=== PATIENT | female | born 1985 | race Caucasian/White ===

== ENCOUNTER 2018-02-14 19:50 | Emergency (ER) | payer OTHER, MEDICAID ==
[2018-02-14] MEDS: NORCO 5/325MG TABLET (BULK FOR ED) PO (22:59)
== END 2018-02-14 23:04 | disposition home or self-care (01) ==
LOC: M ED 19:50
DX: S40.012A Contusion of left shoulder, initial encounter (principal); W19.XXXA Unspecified fall, initial encounter; Y92.098 Other place in other non-institutional residence as the place of occurrence of the external cause; J45.909 Unspecified asthma, uncomplicated; Z88.5 Allergy status to narcotic agent
CPT/HCPCS: 73030

== ENCOUNTER 2018-03-21 20:03 | Emergency (ER) | payer OTHER ==
[2018-03-21] MEDS: methylPREDNISolone INJ 125 MG/2 ML VIAL (J2930) IM (21:25)
[2018-03-21] MEDS: diazePAM 10 MG TAB PO (21:25)
[2018-03-21] MEDS: KETOROLAC 60 MG/2 ML VIAL (J1885) IM (21:26)
== END 2018-03-21 22:18 | disposition home or self-care (01) ==
LOC: M ED 20:03
DX: M51.27 Other intervertebral disc displacement, lumbosacral region (principal); M54.17 Radiculopathy, lumbosacral region; M54.9 Dorsalgia, unspecified; J45.909 Unspecified asthma, uncomplicated; Z72.0 Tobacco use; Z79.899 Other long term (current) drug therapy; Z88.6 Allergy status to analgesic agent; Z88.5 Allergy status to narcotic agent; Z88.0 Allergy status to penicillin
CPT/HCPCS: J1885

== ENCOUNTER → 2018-07-05 | Outpatient (REF) | payer OTHER ==
[~2018-07-05] MED LIST: ASPI81TA3 OR; BACL10TA2; DARV100T; DOXE10CA; DULO1CAP2; FERR325T; FEXO180T58; GABA-845; MAGN500T2; NORCOTAB PO; ORTHOTRICY PO; PRENATAL VITAMIN; SLOW FE; SYMB16INH; ULTRTA OR; VALI10TA PO; [UNRECOGNIZED DRUG - CODE] PO
== END ==
LOC: M LAB REF 17:09
PROVIDERS: ATTEND Obstetrics & Gynecology
DX: Z32.02 Encounter for pregnancy test, result negative (principal); Z3A.00 Weeks of gestation of pregnancy not specified

== ENCOUNTER 2019-12-30 01:03 | Emergency (ER) | payer MEDICAID, OTHER ==
[~2019-12-30] VITALS: Ht 160 cm; Wt 70.5 kg
[~2019-12-30 01:03] MED LIST changes: -DULO1CAP2; +DULO1CAP5; +HYDR-3715 PO; -NORCOTAB PO
[2019-12-30 01:23] VITALS: BP 141/86
[2020-03-05] MEDS ORDERED: WELL200T PO (13:22)
[2020-03-05] MEDS ORDERED: GABA800T4 PO (13:22)
[2020-03-05] MEDS ORDERED: TRAM50TA2 PO (13:23)
== END 2019-12-30 02:31 | disposition home or self-care (01) ==
LOC: M ED 01:03
DX: Z60.9 Problem related to social environment, unspecified (principal); G89.29 Other chronic pain; Z79.899 Other long term (current) drug therapy; Z88.0 Allergy status to penicillin; Z88.5 Allergy status to narcotic agent; Z88.8 Allergy status to other drugs, medicaments and biological substances; F17.210 Nicotine dependence, cigarettes, uncomplicated

== ENCOUNTER → 2020-03-06 | Outpatient (CLI) | payer OTHER ==
[~2020-03-06] MED LIST changes: +GABA800T4 PO; +TRAM50TA2 PO; +WELL200T PO
== END ==
LOC: M LABSMTC 10:51
PROVIDERS: ATTEND Anesthesiology
DX: Z01.818 Encounter for other preprocedural examination (principal)
CPT/HCPCS: C9803; U0003

== ENCOUNTER 2020-03-11 14:31 | Day surgery (SDC) | payer OTHER ==
[~2020-03-11] VITALS: Ht 160 cm; Wt 67.1 kg
[2020-03-11] MEDS ORDERED: NS 1,000 ML IV ONE (15:00)
[2020-03-11] MEDS ORDERED: LIDOCAINE 2% 100MG/5ML SDV (FOR ANES.) As Ordered ONE (16:08)
[2020-03-11] MEDS ORDERED: propofoL 200 MG/20 ML VIAL As Ordered ONE (16:08)
[2020-03-11] MEDS ORDERED: fentaNYL 100 MCG/2 ML INJECTION (J3010) As Ordered ONE (16:08)
--- NOTE | 2020-03-11 16:24 | ROOR ---
Patient Name: Etta Castano Procedure Date: 03/11/2020 4:08 PM Date of : 1985 Age: 34 Room: [facility] Gender: Female Note Status: Finalized Procedure: Upper GI endoscopy Indications: Epigastric abdominal pain, Functional Dyspepsia Providers: Franklin SANTOS MD Referring MD: Edith SINHA MD Requesting Provider: Medicines: Monitored Anesthesia Care Complications: No immediate complications. Procedure: Pre-Anesthesia Assessment: - The heart rate, respiratory rate, oxygen saturations, blood pressure, adequacy of pulmonary ventilation, and response to care were monitored throughout the procedure. The Endoscope was introduced through the mouth, and advanced to the second part of duodenum. The upper GI endoscopy was accomplished without difficulty. The patient tolerated the procedure well. Findings: Non-severe esophagitis was found at the gastroesophageal junction. Biopsies were taken with a cold forceps for histology. The exam of the esophagus was otherwise normal. The entire examined stomach was normal. Biopsies were taken with a cold forceps for Helicobacter pylori testing. The examined duodenum was normal. Impression: - Non-severe reflux esophagitis. Biopsied. - Normal stomach. Biopsied. - Normal examined duodenum. - (Suspect non ulcer dyspepsia) Recommendation: - Use Prilosec (omeprazole) 40 mg PO daily. - Use Levsin, NuLev (hyoscyamine) 0.125 mg 1-2 tabs PO q 6-8 hours PRN - (the script was sent to your pharmacy on file) Franklin Santos MD Franklin SANTOS MD 03/11/2020 4:23:37 PM Electronically signed by Franklin SANTOS MD Number of Addenda: 0 Note Initiated On: 03/11/2020 4:08 PM Estimated Blood Loss: Estimated blood loss: none.
[2020-03-11 16:54] VITALS: BP 125/74
== END 2020-03-11 16:59 | disposition home or self-care (01) ==
LOC: M OPP 14:31
PROVIDERS: ATTEND Internal Medicine Gastroenterology
DX: K21.00 Gastro-esophageal reflux disease with esophagitis, without bleeding (principal); K30 Functional dyspepsia; F17.210 Nicotine dependence, cigarettes, uncomplicated; Z79.891 Long term (current) use of opiate analgesic; Z79.899 Other long term (current) drug therapy; Z88.5 Allergy status to narcotic agent; Z88.8 Allergy status to other drugs, medicaments and biological substances
CPT/HCPCS: 43239; 88305; J3010

== ENCOUNTER → 2020-03-19 | Outpatient (CLI) | payer OTHER, MEDICAID ==
--- NOTE | 2020-03-20 23:46 | ECWPNPC ---
PATIENT NAME: DARIUS KRUEGER : 1985 GENDER: FEMALE VISIT DATE: 03/19/2020 DISCHARGE DATE: 03/19/20923 VISIT LOCKED DATE TIME: PHYSICIAN: AIME KEENE RESOURCE: AIME KEENE REASON FOR APPOINTMENT 1. LEFT ELBOW AND FOREARM PAIN HISTORY OF PRESENT ILLNESS DEPRESSION SCREENING: PHQ-2 (2015 EDITION) LITTLE INTEREST OR PLEASURE IN DOING THINGS?NOT AT ALL FEELING DOWN, DEPRESSED, OR HOPELESS?NOT AT ALL TOTAL SCORE0 GENERAL: 34-YEAR-OLD FEMALE REFERRED BY DR. NATH, [facility], [facility] FOR LEFT ELBOW AND FOREARM PAIN. SHE IS STATUS POST LEFT ULNAR NERVE SURGERY WITH COMPLICATIONS OF INFECTION WITH LAST INTERVENTION SURGICALLY APPROXIMATELY 4 WEEKS AGO. DESCRIBES CONTINUOUS LEFT FOREARM AND HAND BURNING PAIN. REPORTING WEAKNESS IN LEFT ARM. 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 THIS HAS ALL BEEN SINCE THE LAST SURGERY 4 WEEKS AGO. FOLLOWS WITH [facility] IN [place], DR. MORALES FOR MEDICATION MANAGEMENT AND TREATMENT OF CHRONIC LOW BACK PAIN. SHE IS CONSIDERED POST OPERATIVE PAIN MANAGEMENT AT THIS POINT IN TIME AND WOULD RECOMMEND THAT IF THIS TURNS INTO A CHRONIC PAIN ISSUE SHE BE EVALUATED BY DR. MORALES'S PRACTICE WHERE SHE CURRENTLY FOLLOWS FOR LOW BACK PAIN. PATIENT WOULD PREFER TO GO TO [facility] SHE GOES THERE FOR HER CHRONIC LOW BACK PAIN. FALL RISK SCREENING: SCREENING :NO FALLS REPORTED IN THE LAST YEAR PAIN SCREENING: PATIENT HAS A COMPLAINT OF ACUTE OR CHRONIC PAIN :YES LOCATION OF PAIN: LEFT ELBOW/FOREARM INTENSITY OF PAIN (SCALE OF 1 TO 10):7 WHAT DOES YOUR PAIN FEEL LIKE:SORE, CONTINOUS DURATION:AWAKENS FROM SLEEP, CONSTANT PAIN IS INCREASED BY:ACTIVITIES PAIN IS DECREASED BY:USE OF PAIN MEDICATIONS PLAN/GOALS/TREATMENT/INTERVENTION/FOLLOW UP:SEE PLAN NURSING NOTE: -. PAIN CENTER INTAKE QUESTIONS: DO YOU HAVE A HISTORY OF MRSA? :NO DO YOU TAKE A BLOOD THINNERS? :NO DO YOU HAVE ANY BLEEDING DISORDERS? :NO ANY NEW NUMBNESS OR WEAKNESS IN YOUR LEGS OR ARMS? :YES LEFT ARM NUMBNESS AND WEAKNESS S/P SURGERY IN BILATERAL ARMS, COMPLICATIONS WITH SURGERY RESULTING IN CHRONIC PAIN IN LEFT ELBOW. ANY PACEMAKER,DEFIBRILLATOR, OR DORSAL COLUMN STIMULATOR? :NO DO YOU HAVE ANY RASHES OR OPEN SORES? :NO ARE YOU ALLERGIC TO IV DYE? :NO ARE YOU DIABETIC? :NO ANY NEW PROBLEMS WITH YOUR MEDICATIONS? :NO HAVE YOU RECEIVED A VACCINE IN THE PAST 30 DAYS? :NO DO YOU PLAN TO RECEIVE A VACCINE IN THE NEXT 21 DAYS? :NO DO YOU NEED ANY PRESCRIPTION? :NO DO YOU TAKE ANY IMMUNOSUPPRESSIVE MEDICATIONS? :NO IS THERE A CHANCE YOU COULD BE ? :NO ARE YOU BREAST FEEDING? 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 SOCIAL HISTORY GENERAL: TOBACCO USE ARE YOU A:CURRENT SMOKER VAPORNO E-CIGARETTENO LATEX QUESTIONNAIRE LATEX ALLERGY : HAVE YOU EVER DEVELOPED ANY TYPE OF REACTION AFTER HANDLING LATEX PRODUCTS SUCH RUBBER GLOVES, CONDOMS, DIAPHRAGMS, BALLOONS, SOCKS, OR UNDERWEAR?NO LATEX ALLERGY : HAVE YOU EVER DEVELOPED ANY TYPE OF REACTION DURING OR AFTER DENTAL APPOINTMENT, VAGINAL/RECTAL EXAMINATION, SURGICAL PROCEDURE, OR ANY OTHER EXPOSURE?NO LATEX RISK : HAVE YOU EVER HAD ANY DIFFICULTY BREATHING OR HIVES AFTER EATING OR HANDLING ANY FRUITS, OR VEGETABLES; SUCH KIWI, BANANAS, STONE FRUITS, OR CHESTNUTSNO LATEX RISK : DO YOU HAVE A PREVIOUS PERSONAL HISTORY OF MORE THAN NINE SURGERIES, SPINA BIFIDA, OR REPEATED CATHERIZATIONS? NO LATEX RISK : ARE YOU FREQUENTLY EXPOSED TO LATEX PRODUCTS IN YOUR OCCUPATION?NO DATE ASKED : 03/19/2020 ALCOHOL SCREENING DID YOU HAVE A DRINK CONTAINING ALCOHOL IN THE PAST YEAR?YES HOW OFTEN DID YOU HAVE A DRINK CONTAINING ALCOHOL IN THE PAST YEAR?MONTHLY OR LESS (1 POINT) HOW MANY DRINKS DID YOU HAVE ON A TYPICAL DAY WHEN YOU WERE DRINKING IN THE PAST YEAR?1 OR 2 (0 POINTS) HOW OFTEN DID YOU HAVE SIX OR MORE DRINKS ON ONE OCCASION IN THE PAST YEAR?LESS THAN MONTHLY (1 POINT) POINTS2 INTERPRETATIONNEGATIVE RECREATIONAL DRUG USE DRUG USE?NO LEARNING BARRIERS / SPECIAL NEEDS BARRIERS TO LEARNING?NO HEARING IMPAIRED?NO VISION IMPAIRED?NO COGNITIVELY IMPAIRED?NO READINESS TO LEARN?YES LEARNING PREFERENCES?YES :CLASSES, DEMONSTRATION/VERBAL INSTRUCTION LEARNING CAPABILITIES PRESENT?YES EMOTIONAL BARRIERS?YES COMMENTSDOCUMENTED IN NOTES SECTION> ANXIETY SPECIAL DEVICES?NO ASSISTANT PROFESSOR NEEDED?NO DOMESTIC VIOLENCE DO YOU FEEL SAFE IN YOUR ENVIRONMENT?YES MARITAL STATUS: SINGLE. ADVANCE DIRECTIVE ADVANCE DIRECTIVE DISCUSSED WITH PATIENT:YES PATIENT DENIES ANY ADVANCED DIRECTIVES, DENIES ASSISTANCE AT THIS TIME. HOSPITALIZATION/MAJOR DIAGNOSTIC PROCEDURE CHILD REVIEW OF SYSTEMS CONSTITUTIONAL: ANY RECENT FEVER NO . CHILLS NO . WEIGHT CHANGE OF UNKNOWN REASONS NO . GASTROENTEROLOGY: NEW UNEXPLAINABLE CHANGES IN BOWEL CONTROL NO . CONSTIPATION NO . GENITOURINARY: ANY NEW CHANGE IN BLADDER CONTROL? NO . NEUROLOGY: NEW ONSET DIZZINESS OR NEUROLOGICAL CHANGES NOT MENTIONED NO . NEW NUMBNESS OR PAIN PATTERNS NOT MENTIONED AND PERTINENT TO TODAY'S VISIT NO . CARDIOLOGY: NEW CHEST PRESSURE NO . NEW CHEST PAIN NO . RESPIRATORY: UNEXPLAINABLE COUGH NO . NEW SHORTNESS OF BREATH NO . VITAL SIGNS WT 153.0 LBS, HT 62.75 IN, BMI 27.32 INDEX, BP 149/75 MM HG, HR 108 /MIN, RR 18 /MIN, TEMP 98.2 F, OXYGEN SAT % 100%, NA INITIALS AW 0847, REVIEWED BY: MTM. LOLA RN BSN. EXAMINATION GENERAL EXAMINATION: GENERALNO ACUTE DISTRESS, WELL NOURISHED AND HYDRATED. PSYCHAPPROPRIATE MOOD AND AFFECT . FACE:UNREMARKABLE. NECK:NO LYMPHADENOPATHY, . LUNGS:CLEAR TO AUSCULTATION BILATERALLY, NO WHEEZES, RHONCHI, RALES. HEART:NO MURMURS, REGULAR RATE AND RHYTHM. MUSCULOSKELETAL:EQUAL STRONG INSTALLMENT LOAN COLLECTOR STRENGTH BILATERAL HANDS. . NEUROLOGIC EXAM:REPORTING NORMAL SENSATION TO LIGHT TOUCH BILATERAL UPPER EXTREMITIES AND HANDS. . 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 GARRETT IF LEFT ARM BECOMES A CHRONIC PAIN ISSUE. PROCEDURE CODES FA211 ESTABILISHED PATIENT [facility] CHARGE DISPOSITION & COMMUNICATION FOLLOW UP PATIENT REQUESTING [facility] REFERRAL/NO FOLLOW-UP NECESSARY (REASON: LEFT ULNAR NEURITIS/POSTOPERATIVE PAIN) ELECTRONICALLY SIGNED BY KRYSTYNA SONG ON 03/20/2020 AT 10:26 AM EST DISCLAIMER : THIS IS A VISIT SUMMARY EXTRACTED FROM THE [employer] CHART. IT IS NOT A COPY OF THE [employer] PROGRESS NOTE. LYNDA
== END ==
LOC: M PAIN 08:30
PROVIDERS: ATTEND Nurse Practitioner Family
DX: G89.18 Other acute postprocedural pain (principal); G56.22 Lesion of ulnar nerve, left upper limb; Z79.891 Long term (current) use of opiate analgesic; Z79.899 Other long term (current) drug therapy; F17.210 Nicotine dependence, cigarettes, uncomplicated; Z88.0 Allergy status to penicillin; Z88.6 Allergy status to analgesic agent

== ENCOUNTER → 2020-09-07 | Outpatient (CLI) | payer OTHER ==
--- NOTE | 2020-09-08 16:20 | REPVR ---
PROCEDURE INFORMATION: Exam: MR Lumbar Spine Without Contrast Exam date and time: 09/07/2020 3:36 PM Age: 35 years old Clinical indication: Low back pain; Patient HX: Lbp; Additional info: Dd lumbar region TECHNIQUE: Imaging protocol: Multiplanar magnetic resonance images of the lumbar spine without intravenous contrast. COMPARISON: No relevant prior studies available. FINDINGS: Vertebral body heights are maintained. No abnormal marrow signal. No cord compression. No abnormal cord signal. Conus medullaris terminates at the L1 level. Mild degenerative disc height loss at L4-L5. Multilevel Schmorl's node phenomena. Paravertebral soft tissues are unremarkable. L1-L2: No significant canal or foraminal narrowing. L2-L3: No significant canal or foraminal narrowing. L3-L4: No significant canal or foraminal narrowing. L4-L5: Broad-based disc bulge causes mild canal narrowing and mild bilateral foraminal narrowing. L5-S1: No significant canal or foraminal narrowing. IMPRESSION: 1. No acute findings in the lumbar spine. 2. Mild spondylotic changes of the lower lumbar spine without evidence of nerve root compression. Electronically signed by: Tommy Cardoza On 09/08/2020 16:20:09 PM
== END ==
LOC: M RAD 14:46
PROVIDERS: ATTEND Physician Assistant
DX: M51.36 Other intervertebral disc degeneration, lumbar region (principal)

== ENCOUNTER → 2020-11-24 | Outpatient (CLI) | payer OTHER ==
[~2020-11-24] MED LIST changes: +GABA-283; -GABA-845
--- NOTE | 2020-11-24 18:31 | REP ---
INDICATION: RT HIP PAIN. COMPARISON: None. TECHNIQUE: Whole pelvic coronal T1 and STIR; fat-suppressed T2 axial, coronal and sagittal images provided. FINDINGS: The lower lumbar, sacral and iliac marrow is symmetric and unremarkable. Acetabular, ischial and hip marrow was also imaging is and without focal lesion there is no evidence AVN, fracture or bone bruise. Trace fluid in both joints slightly more on the right than left but not sufficient to define effusion I do not see a paralabral sulcus. There is a small linear T2 signal focus in the right posterosuperior labrum most consistent with an acetabular labral sulcus, a benign variation and not a tear. This is a common location with almost half of sublabral sulci noted in this region. I cannot confirm a labral tear on this noncontrast examination. The byproducts operator externus, ileo psoas and hamstring tendons are grossly intact with normal insertions. Some minor symmetric increased signal at the gluteus medius tendon region over the greater trochanter, right slightly greater than left. Uterus is anteverted not enlarged. Bilateral ovarian follicles are seen with no pelvic free fluid or visible mass. Bladder only partially filled without gross abnormality. Symmetric intrinsic and extrinsic pelvic, hip, buttock and proximal thigh musculature. IMPRESSION: 1. Paralabral sulcus posterosuperior labrum without any definite evidence for a labral tear on this noncontrast examination. I do not see any significant joint effusion, loose body, AVN or osteochondral defect in either hip. 2. Mild trochanteric tendinobursitis about the gluteus medius tendon region, right slightly greater than left. 3. No bone bruise fracture or marrow signal abnormality elsewhere in the pelvis. Otherwise negative. <Electronically signed by Lars Roberts > 11/24/20 [id number]
== END ==
LOC: M RAD 10:13
PROVIDERS: ATTEND Physician Assistant
DX: M25.551 Pain in right hip (principal)

== ENCOUNTER → 2021-07-08 | Outpatient (CLI) | payer OTHER ==
[~2021-07-08] MED LIST changes: +FEXO-117; -FEXO180T58
== END ==
LOC: M PLAIMG 12:22
PROVIDERS: ATTEND Physician Assistant
DX: M51.36 Other intervertebral disc degeneration, lumbar region (principal)

== ENCOUNTER → 2021-09-05 | Outpatient (CLI) | payer OTHER | LOC: M WHC 09:22 | PROVIDERS: ATTEND Obstetrics & Gynecology | DX: D25.1 Intramural leiomyoma of uterus (principal); N92.1 Excessive and frequent menstruation with irregular cycle ==

== ENCOUNTER 2022-12-11 09:40 | Day surgery (SDC) | payer OTHER ==
[~2022-12-11] VITALS: Ht 160 cm; Wt 70.7 kg
[~2022-12-11 09:40] MED LIST changes: -GABA-283; +GABA-284; +NS 1,000 ML IV ONE; +VENTAER; +ZOLO100T PO
[2022-12-11] MEDS ORDERED: propofoL 200 MG/20 ML VIAL As Ordered ONE (10:41)
[2022-12-11] MEDS ORDERED: LIDOCAINE 2% 100MG/5ML SDV (FOR ANES.) As Ordered ONE (10:41)
[2022-12-11 11:09] VITALS: TEMP 97.3
[2022-12-11 11:24] VITALS: BP 119/72; O2SAT 99
== END 2022-12-11 11:32 | disposition home or self-care (01) ==
LOC: M OPP 09:40
PROVIDERS: ATTEND Internal Medicine Gastroenterology
DX: K59.00 Constipation, unspecified (principal); Z79.51 Long term (current) use of inhaled steroids; Z79.891 Long term (current) use of opiate analgesic; Z79.899 Other long term (current) drug therapy; Z88.0 Allergy status to penicillin; Z88.6 Allergy status to analgesic agent

== ENCOUNTER 2023-01-26 14:38 | Observation (INO) | payer OTHER ==
[~2023-01-26] VITALS: Ht 160 cm; Wt 72.6 kg
[~2023-01-26 14:38] MED LIST changes: +DIAZ-654 PO; -NS 1,000 ML IV ONE; -VALI10TA PO; -VENTAER; +VENTAER INH
[2023-01-26] MEDS ORDERED: ONDA4TAB6 PO (15:32)
[2023-01-26] MEDS ORDERED: MAGN400O57 PO (15:32)
[2023-01-26] MEDS ORDERED: LACT10SO3 PO (15:32)
[2023-01-26] MEDS ORDERED: SENN-121 PO (15:32)
[2023-01-26 16:43] LABS: BASO % 0.5 % (0.0-1.0); EOS # 0.2 10^3/uL (0.0-0.5); EOS % 2.4 % (0.0-3.0); HEMATOCRIT 38.8 % (36.0-47.0); HEMOGLOBIN 12.7 g/dl (12.0-15.5); LYMPH # 1.5 10^3/uL (1.5-5.0); LYMPH % 20.5 % (24.0-44.0); MEAN CORPUSCULAR HEMOGLOBIN 31.4 pg (27.0-33.0); MEAN CORPUSCULAR HGB CONC 32.7 g/dl (32.0-36.5); MEAN CORPUSCULAR VOLUME 95.8 fl (80.0-96.0); MONO # 0.5 10^3/uL (0.0-0.8); MONO % 6.2 % (2.0-8.0); NEUTROPHILS # 5.2 10^3/uL (1.5-8.5); NEUTROPHILS % 70.1 % (36.0-66.0); PLATELET COUNT, AUTOMATED 229 10^3/uL (150-450); RED BLOOD COUNT 4.05 10^6/uL (4.00-5.40); WHITE BLOOD COUNT 7.5 10^3/uL (4.0-10.0)
[2023-01-26 17:34] LABS: ALBUMIN 3.8 G/DL (3.2-5.2); BILIRUBIN,DIRECT 0.2 MG/DL (<0.4); BILIRUBIN,TOTAL 0.6 MG/DL (0.3-1.2); TOTAL PROTEIN 6.5 G/DL (5.7-8.2)
[2023-01-26] MEDS ORDERED: GOLYTELY SOLN 4000 ML BTL PO ONE (18:20)
[2023-01-26] MEDS ORDERED: NS 1,000 ML IV ONE (18:20)
[2023-01-26] MEDS ORDERED: MED REC IN PROGRESS XX SCH (18:50)
[2023-01-26] MEDS ORDERED: ACETAMINOPHEN TAB 650MG DOSE (2X325MG) PO PRN (19:00)
[2023-01-26] MEDS ORDERED: ONDANSETRON 4MG 2ML VIAL IV PRN (19:15)
[2023-01-26] MEDS ORDERED: RA N220C PO (19:30)
[2023-01-26] MEDS ORDERED: HOME MED LIST COMPLETE! XX SCH (19:35)
[2023-01-26 19:50] VITALS: BP 130/84; TEMP 98.1; O2SAT 95
[2023-01-26] MEDS: GABAPENTIN 400MG CAP PO SCH (23:02)
[2023-01-26] MEDS: DICYCLOMINE 10 MG CAP PO PRN (23:02)
[2023-01-26] MEDS: LR 1,000 ML IV SCH (23:37)
[2023-01-27 05:48] LABS: HEMATOCRIT 35.7 % (36.0-47.0); HEMOGLOBIN 11.7 g/dl (12.0-15.5); MEAN CORPUSCULAR HEMOGLOBIN 31.5 pg (27.0-33.0); MEAN CORPUSCULAR HGB CONC 32.8 g/dl (32.0-36.5); MEAN CORPUSCULAR VOLUME 96.2 fl (80.0-96.0); PLATELET COUNT, AUTOMATED 201 10^3/uL (150-450); RED BLOOD COUNT 3.71 10^6/uL (4.00-5.40); WHITE BLOOD COUNT 6.1 10^3/uL (4.0-10.0)
[2023-01-27 06:00] VITALS: BP 130/66; TEMP 97.9; O2SAT 98
[2023-01-27 06:08] LABS: BLOOD UREA NITROGEN 9 MG/DL (9-23); CALCIUM LEVEL 8.5 MG/DL (8.5-10.1); CARBON DIOXIDE LEVEL 23 MMOL/L (20-31); CHLORIDE LEVEL 111 MMOL/L (98-107); CREATININE FOR GFR 0.69 MG/DL (0.55-1.30); GLOMERULAR FILTRATION RATE > 60.0 (>60); GLUCOSE, FASTING 77 MG/DL (60-100); MAGNESIUM LEVEL 1.6 MG/DL (1.8-2.4); POTASSIUM SERUM 4.4 MMOL/L (3.5-5.1); SODIUM LEVEL 142 MMOL/L (136-145)
[2023-01-27] MEDS: GABAPENTIN 400MG CAP PO SCH ×3 (07:56→19:57)
[2023-01-27] MEDS: SERTRALINE 100 MG TAB PO SCH (07:56)
[2023-01-27] MEDS ORDERED: MAG SULF 1GM/100ML (MAG RUN) 1 GM in IV 1 EA IV ONE (08:00)
[2023-01-27] MEDS ORDERED: ENOXAPARIN 40MG/0.4ML SYRINGE (J1650 PER 10MG) SC SCH (09:00)
[2023-01-27] MEDS: LR 1,000 ML IV SCH ×2 (09:01→17:35)
[2023-01-27] MEDS: DICYCLOMINE 10 MG CAP PO PRN (11:26)
[2023-01-27 14:00] VITALS: BP 97/62; TEMP 98.6; O2SAT 96
[2023-01-27] MEDS ORDERED: ALBUTEROL 90 MCG/ACT 8GM HFA INHALER INH PRN (15:25)
[2023-01-27] MEDS ORDERED: POLYETHYLENE GLYCOL (MIRALAX) 238GM BOTTLE PO ONE (19:00)
[2023-01-27 21:12] VITALS: BP 127/69; TEMP 98.8; O2SAT 100
[2023-01-28 05:15] VITALS: BP 111/59; TEMP 98.1; O2SAT 98
[2023-01-28] MEDS: LR 1,000 ML IV SCH (05:24)
[2023-01-28] MEDS ORDERED: POLYETHYLENE GLYCOL (MIRALAX) 238GM BOTTLE PO ONE (06:00)
[2023-01-28 06:20] LABS: HEMATOCRIT 39.9 % (36.0-47.0); HEMOGLOBIN 13.5 g/dl (12.0-15.5); MEAN CORPUSCULAR HEMOGLOBIN 32.1 pg (27.0-33.0); MEAN CORPUSCULAR HGB CONC 33.8 g/dl (32.0-36.5); PLATELET COUNT, AUTOMATED 231 10^3/uL (150-450); WHITE BLOOD COUNT 6.5 10^3/uL (4.0-10.0)
[2023-01-28 06:47] LABS: ALBUMIN 3.7 G/DL (3.2-5.2); ALKALINE PHOSPHATASE 62 U/L (46-116); ALT/SGPT 11 U/L (7.0-40); AST/SGOT 12 U/L (<34); BILIRUBIN,TOTAL 0.8 MG/DL (0.3-1.2); BLOOD UREA NITROGEN 9 MG/DL (9-23); CALCIUM LEVEL 9.1 MG/DL (8.5-10.1); CARBON DIOXIDE LEVEL 26 MMOL/L (20-31); CHLORIDE LEVEL 107 MMOL/L (98-107); CREATININE FOR GFR 0.81 MG/DL (0.55-1.30); GLOMERULAR FILTRATION RATE > 60.0 (>60); GLUCOSE, FASTING 81 MG/DL (60-100); POTASSIUM SERUM 4.2 MMOL/L (3.5-5.1); SODIUM LEVEL 142 MMOL/L (136-145); TOTAL PROTEIN 6.2 G/DL (5.7-8.2)
[2023-01-28] MEDS: SERTRALINE 100 MG TAB PO SCH (08:30)
[2023-01-28] MEDS: GABAPENTIN 400MG CAP PO SCH ×2 (08:30→15:35)
[2023-01-28] MEDS ORDERED: LIDOCAINE 2% 100MG/5ML SDV (FOR ANES.) As Ordered ONE (12:55)
[2023-01-28] MEDS ORDERED: propofoL 200 MG/20 ML VIAL As Ordered ONE (12:55)
[2023-01-28] MEDS ORDERED: fentaNYL 100 MCG/2 ML INJECTION As Ordered ONE (14:34)
[2023-01-28] MEDS ORDERED: ePHEDrine SULFATE 25 MG/5 ML(5MG/ML) SYRINGE As Ordered ONE (14:38)
[2023-01-28 15:15] VITALS: BP 124/80; TEMP 98.1; O2SAT 100
== END 2023-01-28 17:42 | disposition home or self-care (01) ==
LOC: M ED 14:38 → M ED INP 14:39 → M MSPAV 20:52
PROVIDERS: ADMIT Internal Medicine; ATTEND Internal Medicine
DX: K64.8 Other hemorrhoids (principal); K59.00 Constipation, unspecified; R10.84 Generalized abdominal pain; K58.1 Irritable bowel syndrome with constipation; R11.2 Nausea with vomiting, unspecified; Z88.0 Allergy status to penicillin; Z88.5 Allergy status to narcotic agent; Z79.899 Other long term (current) drug therapy
CPT/HCPCS: 36415; 45380; 74018; 80047; 80048; 80053; 80076; 83690; 83735; 84702; 85025; 85027; 87635; 88305; 96360; 96361; 99284; J3010; J3475

== ENCOUNTER 2023-05-06 12:31 | Day surgery (SDC) | payer OTHER ==
[~2023-05-06] VITALS: Ht 160 cm; Wt 71.2 kg
[~2023-05-06 12:31] MED LIST changes: +LACT10SO3 PO; +MAGN400O57 PO; +NS 1,000 ML IV ONE; +ONDA4TAB6 PO; +RA N220C PO; +SENN-121 PO
[2023-05-06] MEDS ORDERED: fentaNYL 100 MCG/2 ML INJECTION As Ordered ONE (14:56)
[2023-05-06] MEDS ORDERED: propofoL 200 MG/20 ML VIAL As Ordered ONE ×2 (15:00→15:09)
[2023-05-06] MEDS ORDERED: LIDOCAINE 2% 100MG/5ML SDV (FOR ANES.) As Ordered ONE (15:00)
[2023-05-06 15:13] VITALS: TEMP 98
[2023-05-06 15:29] VITALS: BP 133/75; O2SAT 100
== END 2023-05-06 15:43 | disposition home or self-care (01) ==
LOC: M OPP 12:31
PROVIDERS: ATTEND Internal Medicine Gastroenterology
DX: K22.89 Other specified disease of esophagus (principal); K21.00 Gastro-esophageal reflux disease with esophagitis, without bleeding; K22.70 Barrett's esophagus without dysplasia; Z09 Encounter for follow-up examination after completed treatment for conditions other than malignant neoplasm; R12 Heartburn; Z87.891 Personal history of nicotine dependence; Z79.1 Long term (current) use of non-steroidal anti-inflammatories (NSAID); Z79.51 Long term (current) use of inhaled steroids; Z79.891 Long term (current) use of opiate analgesic; Z79.899 Other long term (current) drug therapy; Z88.0 Allergy status to penicillin; Z88.6 Allergy status to analgesic agent
CPT/HCPCS: 43239; 88305; J3010

== ENCOUNTER 2024-03-13 18:42 | Emergency (ER) | payer OTHER ==
[~2024-03-13] VITALS: Ht 160 cm; Wt 77.3 kg
[~2024-03-13 18:42] MED LIST changes: +GABA-1635 PO; -GABA800T4 PO; -LACT10SO3 PO; +LACT10SO94 PO; -NS 1,000 ML IV ONE; +ONDA-282 PO; -ONDA4TAB6 PO
[2024-03-13 18:53] VITALS: TEMP 97.6
[2024-03-13] MEDS: MORPHINE 4 MG/ML 1ML VIAL IV PRN (20:40)
[2024-03-13 20:50] LABS: BASO % 0.3 % (0.0-1.0); EOS # 0.2 10^3/uL (0.0-0.5); EOS % 1.8 % (0.0-3.0); HEMATOCRIT 41.9 % (36.0-47.0); HEMOGLOBIN 14.1 g/dl (12.0-15.5); LYMPH # 1.4 10^3/uL (1.5-5.0); LYMPH % 14.4 % (24.0-44.0); MEAN CORPUSCULAR HEMOGLOBIN 32.9 pg (27.0-33.0); MEAN CORPUSCULAR HGB CONC 33.7 g/dl (32.0-36.5); MEAN CORPUSCULAR VOLUME 97.9 fl (80.0-96.0); MONO # 0.6 10^3/uL (0.0-0.8); MONO % 5.7 % (2.0-8.0); NEUTROPHILS # 7.6 10^3/uL (1.5-8.5); NEUTROPHILS % 77.4 % (36.0-66.0); PLATELET COUNT, AUTOMATED 240 10^3/uL (150-450); RED BLOOD COUNT 4.28 10^6/uL (4.00-5.40); WHITE BLOOD COUNT 9.9 10^3/uL (4.0-10.0)
[2024-03-13] MEDS ORDERED: ISOVUE-370 76% 100ML VIAL As Ordered ONE (20:50)
[2024-03-13 21:02] LABS: INR 0.92; PARTIAL THROMBOPLASTIN TIME 26.3 SECONDS (24.8-34.2); PROTHROMBIN TIME 12.7 SECONDS (12.5-14.5)
[2024-03-13] MEDS: ANEXSIA, NORCO 7.5MG/325MG TABLET(HYDROCODONE/APAP) PO ONE (21:04)
[2024-03-13 21:18] LABS: CK-MB VALUE MASS < 1.0 NG/ML (<3.6); LIPASE 35 U/L (12-53)
[2024-03-13 21:19] LABS: ETHYL ALCOHOL (ETHANOL) 0.005 % (0.000-0.010)
[2024-03-13 21:20] LABS: ALBUMIN 3.6 G/DL (3.2-5.2); ALKALINE PHOSPHATASE 75 U/L (35-104); ALT/SGPT 17 U/L (7.0-40); AMYLASE 59 U/L (30-118); AST/SGOT 14 U/L (<34); BILIRUBIN,DIRECT 0.2 MG/DL (<0.4); BILIRUBIN,TOTAL 0.6 MG/DL (0.3-1.2); BLOOD UREA NITROGEN 7 MG/DL (9-23); CALCIUM LEVEL 9.1 MG/DL (8.5-10.1); CARBON DIOXIDE LEVEL 26 MMOL/L (20-31); CHLORIDE LEVEL 110 MMOL/L (98-107); CPK CREATINE PHOSPHOKINASE 75 U/L (34-145); CREATININE FOR GFR 0.65 MG/DL (0.55-1.30); GLOMERULAR FILTRATION RATE > 60.0 (>60); GLUCOSE, FASTING 98 MG/DL (60-100); MB/CK RELATIVE INDEX 1.33 (< OR =4); POTASSIUM SERUM 4.1 MMOL/L (3.5-5.1); SODIUM LEVEL 144 MMOL/L (136-145); TOTAL PROTEIN 6.5 G/DL (5.7-8.2)
[2024-03-13 21:24] LABS: HCG, SERUM QUALITATIVE NEGATIVE (NEGATIVE)
[2024-03-13 22:57] LABS: APPEARANCE, URINE CLEAR (CLEAR); BACTERIA, URINE AUTO 1+ (NEGATIVE); BILIRUBIN, URINE AUTO NEGATIVE (NEGATIVE); BLOOD, URINE BLOOD NEGATIVE (NEGATIVE); COLOR, URINE STRAW (YELLOW); GLUCOSE, URINE (UA) AUTO NEGATIVE (NEGATIVE); KETONE, URINE AUTO NEGATIVE (NEGATIVE); LEUKOCYTE ESTERASE, URINE AUTO NEGATIVE (NEGATIVE); NITRITE, URINE AUTO NEGATIVE (NEGATIVE); PROTEIN, URINE AUTO NEGATIVE (NEGATIVE); RBC, URINE AUTO 0 /HPF (0-3); SPECIFIC GRAVITY URINE AUTO 1.017 (1.002-1.035); SQUAMOUS EPITHELIAL CELL UR AU 3 /HPF (0-6); UROBILINOGEN, URINE AUTO 0.2 mg/dL (0.0-2.0); WBC, URINE AUTO 0 /HPF (0-3)
[2024-03-13 23:01] VITALS: BP 142/83
[2024-03-13] MEDS ORDERED: HYDR-4571 PO (23:07)
[2024-03-13 23:10] VITALS: O2SAT 98
[2024-03-13] MEDS: MORPHINE 4 MG/ML 1ML VIAL IV ONE (23:10)
[2024-03-14 00:40] LABS: AMPHETAMINES LEVEL URINE NEGATIVE (NEGATIVE); BARBITURATES URINE NEGATIVE (NEGATIVE); BENZODIAZEPINES URINE NEGATIVE (NEGATIVE); CANNABINOIDS URINE NEGATIVE (NEGATIVE); COCAINE METABOLITE URINE NEGATIVE (NEGATIVE); METHADONE URINE NEGATIVE (NEGATIVE); PHENCYCLIDINE URINE NEGATIVE (NEGATIVE)
[2024-03-14 00:47] LABS: OPIATES URINE POSITIVE (NEGATIVE)
== END 2024-03-13 23:21 | disposition home or self-care (01) ==
LOC: EDBD 18:42 → M ED 18:42
DX: S30.1XXA Contusion of abdominal wall, initial encounter (principal); S80.11XA Contusion of right lower leg, initial encounter; S80.12XA Contusion of left lower leg, initial encounter; Y92.410 Unspecified street and highway as the place of occurrence of the external cause; Y93.9 Activity, unspecified; Y99.9 Unspecified external cause status; V40.5XXA Car driver injured in collision with pedestrian or animal in traffic accident, initial encounter; J45.909 Unspecified asthma, uncomplicated; Z88.1 Allergy status to other antibiotic agents; Z91.09 Other allergy status, other than to drugs and biological substances; Z79.51 Long term (current) use of inhaled steroids; Z79.899 Other long term (current) drug therapy
CPT/HCPCS: 71260; 72125; 73552; 73560; 73590; 74177; 80047; 80048; 80076; 80307; 81001; 82077; 82150; 82550; 82553; 83605; 83690; 84484; 84703; 85025; 85610; 85730; 86850; 86900; 86901; 93041; 94760; 96374; 96375; 99284; Q9967

== ENCOUNTER 2024-03-21 09:48 | Emergency (ER) | payer OTHER ==
[~2024-03-21] VITALS: Ht 160 cm; Wt 86.7 kg
[~2024-03-21 09:48] MED LIST changes: +HYDR-4571 PO
[2024-03-21 16:05] VITALS: BP 148/98; TEMP 97.5; O2SAT 97
== END 2024-03-21 16:10 | disposition home or self-care (01) ==
LOC: M ED 09:48
DX: R10.31 Right lower quadrant pain (principal); S80.12XA Contusion of left lower leg, initial encounter; Y92.410 Unspecified street and highway as the place of occurrence of the external cause; Y93.9 Activity, unspecified; Y99.9 Unspecified external cause status; V40.5XXA Car driver injured in collision with pedestrian or animal in traffic accident, initial encounter; J45.909 Unspecified asthma, uncomplicated; F41.9 Anxiety disorder, unspecified; F32.A Depression, unspecified; Z88.1 Allergy status to other antibiotic agents; Z79.51 Long term (current) use of inhaled steroids; Z79.899 Other long term (current) drug therapy